=== PATIENT | female | born 1950 | race Native Hawaiian/Other Pacific Islander ===

== ENCOUNTER 2019-11-24 20:02 | Emergency (ER) | payer OTHER ==
[~2019-11-24] VITALS: Ht 160 cm; Wt 59.0 kg
[2019-11-24 20:02] VITALS: TEMP 98.7
[2019-11-24 20:54] LABS: PLATELET COUNT 257 K/uL (152-353)
[2019-11-24 21:03] LABS: POTASSIUM 4.3 mmol/L (3.6-5.2)
[2019-11-24 22:19] VITALS: BP 164/63
[2019-11-25] MEDS ORDERED: LEVO0.0218 PO (13:12)
[2019-11-25] MEDS ORDERED: METO50TA27 PO (13:14)
[2019-11-25] MEDS ORDERED: HYDR5TAB9 PO (13:16)
[2019-12-07] MEDS ORDERED: SERT50TA PO (15:27)
[2019-12-07] MEDS ORDERED: OXCARBAZEPIN300 MG PO (15:27)
[2019-12-07] MEDS ORDERED: ATOR20TA2 PO (15:28)
[2019-12-07] MEDS ORDERED: OLAN2.5T2 PO (15:28)
== END 2019-11-25 00:19 | disposition other institution (70) ==
LOC: ED 20:02
PROVIDERS: Family Medicine
DX: R46.89 Other symptoms and signs involving appearance and behavior (principal); F25.9 Schizoaffective disorder, unspecified; F41.8 Other specified anxiety disorders; Z11.59 Encounter for screening for other viral diseases; Z04.6 Encounter for general psychiatric examination, requested by authority
CPT/HCPCS: 36415; 80053; 85027; 87635; 93005; 99283; 99285; G2023; U0003